=== PATIENT | male | born 1945 | race Caucasian/White ===

== ENCOUNTER 2021-04-30 06:39 | Day surgery (SDC) | payer MEDICARE, MEDICAID ==
[~2021-04-30] VITALS: Ht 175.3 cm; Wt 86.2 kg
[~2021-04-30 06:39] MED LIST: ABILIFY2 MG OR; ASPIRIN81 MG PO; ATENOLOL25 MG OR; BL ADULT ASA81 MG PO; CELEXA20 M1 OR; CEPHALEXIN500 MG PO; CIPRO500 MG PO; CRESTOR20 MG PO; HYDROCHLOROT25 MG OR; KLOR-CON M2020 MEQ PO; LASIX20 MG OR; LISINOP/HCTZ1 TAB OR; LISINOPRIL10 MG PO; LISINOPRIL20 M1 PO; LORTAB5 PO; METFORMIN HCL1000 MG PO; METFORMIN500 M1 PO; METFORMIN500 MG PO; MEVACOR40 MG OR; NAPROSYN500 MG PO; NIACIN ER500 M1 PO; PENICILLN VK500 M1 OR; PENTOPAK400 MG OR; PEXEVA40 MG OR; RANITIDINE300 M1 PO; TAMSULOSIN0.4 MG PO; XARELTO10 MG PO; [UNRECOGNIZED DRUG - REMARK]
[2021-04-30 09:43] VITALS: BP 128/73
[2021-05-01] MEDS ORDERED: PANTOPRAZOLE SO40 M1 PO (11:11)
== END 2021-04-30 10:15 | disposition home or self-care (01) ==
LOC: ORM 06:39
PROVIDERS: ATTEND Urology
PROC: 0VB03ZX Excision of Prostate, Percutaneous Approach, Diagnostic (ICD-10-PCS; principal; 2021-04-30)
PROC: BV49ZZZ Ultrasonography of Prostate and Seminal Vesicles (ICD-10-PCS; 2021-04-30)
DX: C61 Malignant neoplasm of prostate (principal); I25.10 Atherosclerotic heart disease of native coronary artery without angina pectoris; N40.1 Benign prostatic hyperplasia with lower urinary tract symptoms; N13.8 Other obstructive and reflux uropathy; I11.0 Hypertensive heart disease with heart failure; I50.9 Heart failure, unspecified; E11.42 Type 2 diabetes mellitus with diabetic polyneuropathy; E78.2 Mixed hyperlipidemia; E66.01 Morbid (severe) obesity due to excess calories; K21.9 Gastro-esophageal reflux disease without esophagitis; Z68.27 Body mass index [BMI] 27.0-27.9, adult; Z86.73 Personal history of transient ischemic attack (TIA), and cerebral infarction without residual deficits; Z79.01 Long term (current) use of anticoagulants
CPT/HCPCS: J1956

== ENCOUNTER 2021-04-30 14:24 | Observation (INO) | payer MEDICARE, MEDICAID ==
[~2021-04-30] VITALS: Ht 175.3 cm; Wt 87.0 kg
--- NOTE | 2021-04-30 14:24 | NUR ---
TO ROOM VIA EMS
[2021-04-30 14:55] LABS: HEMATOCRIT 40.2 % (39.0-50.0); HEMOGLOBIN 13.2 g/dl (14.0-18.0); IMMATURE GRANULOCYTES 0.1 % (0.0-5.0); MEAN CORPUSCULAR HGB 32.5 pG CALC (26.0-32.0); MEAN CORPUSCULAR HGB CONC 32.8 g/dL CAL (32.0-36.0); NEUT# 5.67 thou/uL (1.82-7.42); RED BLOOD COUNT 4.06 mill/uL (4.70-6.10); RED CELL DISTRI WIDTH 11.9 % (11.5-15.5)
[2021-04-30 15:07] LABS: ALKALINE PHOSPHATASE 48 u/l (38-126); ANION GAP 12 (6-22 (CALC)); BILIRUBIN, TOTAL 0.6 mg/dL (0.0-1.4); BUN 20 mg/dL (8-23); BUN/CREATININE RATIO 24 (12-20 (CALC)); CARBON DIOXIDE 25 mmol/l (22-30); CHLORIDE 103 mmol/l (95-108); CREATININE 0.9 mg/dL (0.7-1.3); GFR > 60 ML/MIN (>=60 (CALC)); GFR FOR AFR.AMER. > 60 ML/MIN (>=60 (CALC)); LIPASE 44 u/l (23-300); POTASSIUM 4.2 mmol/l (3.5-5.1); SGOT/AST 19 u/l (19-48); SODIUM 136 mmol/l (137-146); TOTAL PROTEIN 6.9 g/dL (6.3-8.2)
--- NOTE | 2021-04-30 15:30 | NUR ---
PT RESTING IN BED ON OPERATING SYSTEMS SPECIALIST, NO COMPLAINTS AT THIS TIME
[2021-04-30 15:44] LABS: URINE BILIRUBIN - DIPSTICK NEGATIVE (NEGATIVE); URINE BLOOD DIPSTICK TRACE-INTACT (NEGATIVE); URINE COLOR YELLOW; URINE GLUCOSE - DIPSTICK NEGATIVE (NEGATIVE); URINE KETONE NEGATIVE (NEGATIVE); URINE LEUK ESTERASE TRACE (NEGATIVE); URINE PH 5.5 (4.5-8.0); URINE PROTEIN - DIPSTICK NEGATIVE (NEG-TRACE); URINE UROBILINOGEN - DIPSTICK 0.2 E.U./dL (0.2)
[2021-04-30 15:45] LABS: URINE NITRITE - DIPSTICK NEGATIVE (Negative)
--- NOTE | 2021-04-30 16:57 | NUR ---
PT ALREADY HAD 324 BABY ASA ON EMS
--- NOTE | 2021-04-30 18:00 | NUR ---
PT EATING IN BED WITH NO COMPLAINTS
--- NOTE | 2021-04-30 19:03 | NUR ---
GAVE REPORT TO GLYNN HUNTER, NO COMPLAINTS WITH PT AND VSS
--- NOTE | 2021-04-30 19:14 | NUR ---
JOHNNIE RECEIVED FROM ADELINE MARIA.
[2021-04-30 19:15] VITALS: BP 148/81
--- NOTE | 2021-04-30 19:15 | NUR ---
TO FLOOR BY WC.
--- NOTE | 2021-04-30 20:27 | NUR ---
RECEIVED PATIENT TO ROOM 272 VIA WHEELCHAIR AT 1915. PATIENT AWAKE, ALERT AND ORIENTED X3. VSS. NO DISTRESS NOTED. TRANSFERED TO BED WITHOUT DIFFICULTY. ORIENTED TO ROOM AND INSTRUCTED ON USE OF CALL SOSA. BED IN LOW POSITION LOCKED. INSTRUCTED TO CALL FOR ASSISTANCE FOR RESTROOM. PATIENT APPEARS FORGETFUL, BED ALARM ACTIVATED. ADMISSION ASSESSMENT COMPLETE. CALL LIGHT WITHIN REACH.
[2021-05-01] VITALS: BP 105/64
[2021-05-01 04:00] VITALS: BP 120/69
--- NOTE | 2021-05-01 05:55 | NUR ---
ASSISTED PATIENT TO RESTROOM, TOLERATED WELL. PATIENT PASS FLATUS, NO BM. URINE PINK TINGED, STATES HE WAS INFORMED THAT IS TO BE EXPECTED AFTER HIS PROSTATE PROCEDURE YESTERDAY.
[2021-05-01 06:26] LABS: HEMATOCRIT 40.4 % (39.0-50.0); HEMOGLOBIN 13.2 g/dl (14.0-18.0); MEAN CELL VOLUME 97.8 fL CALC (80.0-100.0); MEAN CORPUSCULAR HGB CONC 32.7 g/dL CAL (32.0-36.0); RED BLOOD COUNT 4.13 mill/uL (4.70-6.10); RED CELL DISTRI WIDTH 12.1 % (11.5-15.5)
[2021-05-01 06:52] LABS: ANION GAP 10 (6-22 (CALC)); BUN 18 mg/dL (8-23); BUN/CREATININE RATIO 27 (12-20 (CALC)); CALCULATED LDLCHOLESTEROL 68 mg/dL (62-129 (CALC)); CARBON DIOXIDE 25 mmol/l (22-30); CHLORIDE 105 mmol/l (95-108); CHOLESTEROL HDL RATIO 2.5 (<4.4 (CALC)); CREATININE 0.7 mg/dL (0.7-1.3); GFR > 60 ML/MIN (>=60 (CALC)); GFR FOR AFR.AMER. > 60 ML/MIN (>=60 (CALC)); HDL CHOLESTEROL 55 mg/dL (>=40); MAGNESIUM 1.7 mg/dL (1.6-2.3); POTASSIUM 3.9 mmol/l (3.5-5.1); SODIUM 136 mmol/l (137-146); TOTAL CHOLESTEROL 137 mg/dl (0-199); TOTAL TRIGLYCERIDES 68 mg/dl (30-149); VLDL CHOLESTROL 14 mg/dl (0-38 (CALC))
--- NOTE | 2021-05-01 08:17 | NUR ---
PT AWAKE AND RESTING IN BED. PT ALERT AND ORIENTED. VS AND ASSESSMENT COMPLETE. NO SIGNS OF DISTRESS OR DISCOMFORT AT THIS TIME. RESPIRATIONS EVEN AND UNLABORED. LUNGS CLEAR. ABDOMEN SOFT AND NONTENDER. PERIPHERAL PULSES STRONG AND PALPABLE. IV INTACT, FLUSHED AND PATENT. SAFETY PRECAUTIONS IN PLACE AND CALL LIGHT WITHIN PATIENT REACH. WILL MONITOR PT CLOSELY
[2021-05-01 10:51] VITALS: BP 105/54
[2021-05-01] MEDS ORDERED: PANTOPRAZOLE SO40 M1 PO (11:11)
--- NOTE | 2021-05-01 12:00 | NUR ---
PT ALERT AND ORIENTED. PT RESTING IN BED. PT DENIES ANY PAIN OR DISTRESS AT THIS TIME. SAFETY PRECAUTIONS MAINTAINED. CALL LIGHT WITHIN PT REACH. WILL CONTINUE TO MONITOR. BED ALARM ACTIVATED
[2021-05-01 14:10] VITALS: BP 95/62
--- NOTE | 2021-05-01 16:00 | NUR ---
PT RESTING COMFORTABLY. NO NEEDS AT THIS TIME. BED ALARM ACTIVATED
--- NOTE | 2021-05-01 19:24 | NUR ---
JOHNNIE RECEIVED FROM TEAGAN HUNTER
[2021-05-01 19:35] VITALS: BP 116/57
--- NOTE | 2021-05-01 19:38 | NUR ---
RESTING QUIETLY IN BED. ALERT AND ORIENTED. VSS. NO DISTRESS NOTED. DENIES PAIN AT THIS TIME. CALL LIGHT IN REACH, INSTRUCTED TO CALL FOR ASSISTANCE.
[2021-05-02 04:00] VITALS: BP 89/53
--- NOTE | 2021-05-02 05:37 | NUR ---
RESTING QUIETLY EYES CLOSED. BED ALARM ACTIVATED. CALL LIGHT WITHIN REACH.
[2021-05-02 06:21] LABS: ANION GAP 10 (6-22 (CALC)); BUN 20 mg/dL (8-23); BUN/CREATININE RATIO 25 (12-20 (CALC)); CARBON DIOXIDE 25 mmol/l (22-30); CHLORIDE 104 mmol/l (95-108); CREATININE 0.8 mg/dL (0.7-1.3); GFR > 60 ML/MIN (>=60 (CALC)); GFR FOR AFR.AMER. > 60 ML/MIN (>=60 (CALC)); MAGNESIUM 1.7 mg/dL (1.6-2.3); POTASSIUM 4.1 mmol/l (3.5-5.1); SODIUM 135 mmol/l (137-146)
[2021-05-02 06:22] LABS: HEMATOCRIT 39.2 % (39.0-50.0); HEMOGLOBIN 12.9 g/dl (14.0-18.0); MEAN CELL VOLUME 98.2 fL CALC (80.0-100.0); MEAN CORPUSCULAR HGB 32.3 pG CALC (26.0-32.0); MEAN CORPUSCULAR HGB CONC 32.9 g/dL CAL (32.0-36.0); RED BLOOD COUNT 3.99 mill/uL (4.70-6.10); RED CELL DISTRI WIDTH 12.3 % (11.5-15.5)
[2021-05-02 07:41] VITALS: BP 109/59
--- NOTE | 2021-05-02 07:43 | NUR ---
PT OOB INTO BATHROOM. PT C/O HEMATURIA. PT FLUSHED TOILET PRIOR TO NURSES ABILITY TO ASSESS. PT C/O BURNING WITH URINATION. NO BLADDER DISTENTION NOTED AT THIS TIME. WILL BLADDER SCAN AND REASSESS AFTER BREAKFAST. VSS. PT DENIES ANY OTHER COMPLAINTS. CALL LIGHT WITHIN REACH. WILL CONTINUE TO MONITOR.
--- NOTE | 2021-05-02 09:39 | NUR ---
URINE SAMPLE SENT TO LAB AT THIS TIME.
[2021-05-02 10:14] LABS: URINE BILIRUBIN - DIPSTICK NEGATIVE (NEGATIVE); URINE BLOOD DIPSTICK LARGE (NEGATIVE); URINE GLUCOSE - DIPSTICK NEGATIVE (NEGATIVE); URINE KETONE NEGATIVE (NEGATIVE); URINE LEUK ESTERASE NEGATIVE (NEGATIVE); URINE PH 5.5 (4.5-8.0); URINE PROTEIN - DIPSTICK 100 mg/dL (NEG-TRACE); URINE UROBILINOGEN - DIPSTICK 0.2 E.U./dL (0.2)
[2021-05-02 10:15] LABS: URINE COLOR BROWN; URINE NITRITE - DIPSTICK POSITIVE (Negative)
[2021-05-02 10:16] LABS: URINE BACTERIA FEW hpf; URINE RBC TNTC RBC/hpf (0-5); URINE WBC 0-2 WBC/hpf (0-5)
--- NOTE | 2021-05-02 10:39 | NUR ---
PHYSICIAN AT BEDSIDE TO DISCUSS POC.
--- NOTE | 2021-05-02 11:44 | NUR ---
PLACE PHONE CALL TO [facility] PER PATIENTS REQUEST FOR RIDE HOME. [facility] IS OUT OF TOWN WILL CALL SOMEONE TO PICK HIM UP AFTER LUNCH.
[2021-05-02 12:03] VITALS: BP 109/66
--- NOTE | 2021-05-02 12:25 | NUR ---
IV site discontinued, cath intact. No edema , no redness, voices no discomfort.
--- NOTE | 2021-05-02 12:34 | NUR ---
Discharge instructions given. Patient verbalizes understanding of same. Discharged in stable condition via Wheelchair to Home with friend. All belongings sent with pt.
== END 2021-05-02 12:34 | disposition home health service (06) ==
LOC: ED 14:24 → ED-I 16:07 → ED 16:20 → MS2 16:21
PROVIDERS: Family Medicine; Nurse Practitioner; ADMIT Hospitalist; ATTEND Hospitalist
DX: R07.9 Chest pain, unspecified (principal); R42 Dizziness and giddiness; R31.9 Hematuria, unspecified; I10 Essential (primary) hypertension; E11.9 Type 2 diabetes mellitus without complications; N40.0 Benign prostatic hyperplasia without lower urinary tract symptoms; E78.5 Hyperlipidemia, unspecified; E66.9 Obesity, unspecified; R91.1 Solitary pulmonary nodule; Z86.73 Personal history of transient ischemic attack (TIA), and cerebral infarction without residual deficits; Z79.01 Long term (current) use of anticoagulants; Z98.890 Other specified postprocedural states; Z79.84 Long term (current) use of oral hypoglycemic drugs; Z20.822 Contact with and (suspected) exposure to COVID-19; R97.20 Elevated prostate specific antigen [PSA]; C61 Malignant neoplasm of prostate; I25.10 Atherosclerotic heart disease of native coronary artery without angina pectoris; N40.1 Benign prostatic hyperplasia with lower urinary tract symptoms; N13.8 Other obstructive and reflux uropathy; I11.0 Hypertensive heart disease with heart failure; I50.9 Heart failure, unspecified; E11.42 Type 2 diabetes mellitus with diabetic polyneuropathy; E78.2 Mixed hyperlipidemia; E66.01 Morbid (severe) obesity due to excess calories; K21.9 Gastro-esophageal reflux disease without esophagitis; Z68.27 Body mass index [BMI] 27.0-27.9, adult
CPT/HCPCS: J1650; J1956; Q9967

== ENCOUNTER 2021-06-19 14:56 | Inpatient (IN) | payer MEDICARE, MEDICAID ==
[~2021-06-19] VITALS: Ht 175.3 cm; Wt 87.0 kg
[~2021-06-19 14:56] MED LIST changes: -KLOR-CON M2020 MEQ PO; +PANTOPRAZOLE SO40 M1 PO; +POTASSIUM CHLO10 ME4 PO
--- NOTE | 2021-06-19 15:00 | NUR ---
PT TO ROOM FOR BEDSIDE TRIAGE FROM EMS
[2021-06-19 15:54] LABS: HEMATOCRIT 37.8 % (39.0-50.0); HEMOGLOBIN 12.6 g/dl (14.0-18.0); MEAN CELL VOLUME 94.5 fL CALC (80.0-100.0); MEAN CORPUSCULAR HGB 31.5 pG CALC (26.0-32.0); MEAN CORPUSCULAR HGB CONC 33.3 g/dL CAL (32.0-36.0); NEUT# 3.41 thou/uL (1.82-7.42)
[2021-06-19 15:56] LABS: URINE BILIRUBIN - DIPSTICK NEGATIVE (NEGATIVE); URINE BLOOD DIPSTICK NEGATIVE (NEGATIVE); URINE COLOR YELLOW; URINE GLUCOSE - DIPSTICK NEGATIVE (NEGATIVE); URINE KETONE NEGATIVE (NEGATIVE); URINE LEUK ESTERASE TRACE (NEGATIVE); URINE PROTEIN - DIPSTICK NEGATIVE (NEG-TRACE); URINE SPECIFIC GRAVITY 1.015; URINE UROBILINOGEN - DIPSTICK 0.2 E.U./dL (0.2)
[2021-06-19 16:07] LABS: URINE NITRITE - DIPSTICK NEGATIVE (Negative)
[2021-06-19 16:13] LABS: ALKALINE PHOSPHATASE 68 u/l (38-126); ANION GAP 13 (6-22 (CALC)); BILIRUBIN, TOTAL 0.6 mg/dL (0.0-1.4); BUN 25 mg/dL (8-23); BUN/CREATININE RATIO 26 (12-20 (CALC)); CARBON DIOXIDE 24 mmol/l (22-30); CHLORIDE 103 mmol/l (95-108); GFR > 60 ML/MIN (>=60 (CALC)); GFR FOR AFR.AMER. > 60 ML/MIN (>=60 (CALC)); LIPASE 88 u/l (23-300); POTASSIUM 4.3 mmol/l (3.5-5.1); SGOT/AST 20 u/l (19-48); SODIUM 136 mmol/l (137-146); TOTAL PROTEIN 7.4 g/dL (6.3-8.2)
[2021-06-19 16:19] LABS: ALBUMIN 4.2 g/dL (3.2-5.0)
--- NOTE | 2021-06-19 16:31 | NUR ---
DR WILLINGHAM AUTHORIZED [facility] TO BE GIVEN IM INSTEAD OF PO. CONTINUES TO C/O SUPRAPUBIC DISCOMFORT
--- NOTE | 2021-06-19 20:45 | NUR ---
UPON ENTERING ROOM, NG TUBE FOUND ON FLOOR. NEW NG TUBE PLACED IN THE LEFT NARES.
--- NOTE | 2021-06-19 21:03 | NUR ---
RN REPORT CALLED TO AJ
[2021-06-19 21:30] VITALS: BP 179/102
--- NOTE | 2021-06-19 22:00 | NUR ---
PATIENT ADMITTED FROM ER VIA WHEELCHAIR WITH ER STAFF IN ATTENDANCE. PATIENT TRANSFERRED TO BED. PATIENT IS PALE. AWAKE ALERT AND ORIENTEDX3. PATIENT WITH NG TUBE IN PLACE TO LEFT NARE. PLACEMENT CHECKED USEING STETHASCOPE AND SYRINGE. NG TUBE TO LIWS DRAING PALE YELLOW SECREATIONS. ABD IS FIRM-HYPOACTIVE BS. LAST BM WAS TODAY PER PATIENT. 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 LIVES WITH HIS GIRLFRIEND. CAME TO ER BY EMS AFTER CALLING THEM FOR SEVERE ABD PAIN. NPO AT THIS TIME. IV SITE TO RIGHT FOREARM-IVF NS HUNG AND INFUSING AT 100CC/HR. SITE IS HEALTHY WITH GOOD BLOOD RETURN. PATIENT STATES THAT HE DOES HAVE SOME BURNING UPON URINATION. HX OF CVA WITH LEFT SIDED WEAKNESS. STATES THAT HE USUALLY WALKS WITH EITHER CANE OR WALKER. PATIENT ORIENTED TO ROOM AND SURROUNDINGS. SAFETY PRECAUTIONS REINFORCED. CALL LIGHT IN REACH. WILL CONT TO MONITOR.
--- NOTE | 2021-06-19 23:15 | NUR ---
PATIENT RESTING IN BED-C/O SEVERE ABD/PELVIC PAIN-MEDICATED WITH ZOFRAN 4MG IVP FOR NAUSEA AND WITH MORPHINE 2MG IVP FOR 10/10 PAIN SCALE. IVF PATENT AND INFUSING ORDERED AT 100CC/HR. SITE REMAINS HEALTHY. NG TUBE TO LIWS DRAINING YELLOW SCREATIONS. CALL LIGHT IN REACH. WILL CONT TO MONITOR.
[2021-06-20] VITALS (12 sets, daily range): BP systolic 91–162; BP diastolic 52–89
--- NOTE | 2021-06-20 01:47 | NUR ---
PATIENT RESTING IN BED AT THIS TIME. NG TUBE PATENT AND DRAINING YELLOW SECREATIONS. IVF PATENT AND INFUSING VIA RIGHT ARM SITE. CONT TO C/O ABD/PELVIC PAIN 10/10 ON PAIN SCALE. MEDICATED WITH MORPHINE 2MG IVP ORDERED FOR PAIN. CALL LIGHT IN REACH. WILL CONT TO MONITOR.
--- NOTE | 2021-06-20 05:04 | NUR ---
PATIENT RESTING IN BED AT THIS TIME-AWAKE CONT TO C/O ABD/PELVIC PAIN. MEDICATED WITH ZOFRAN 4MG IVP FOR NAUSEA NAD WITH MORPHINE 2MG IVP FOR PAIN-9/10 ON PAIN SCALE. IVF NS PATENT AND INFUSING VIA RIGHT AC AT 125CC/HR. SITE REMAINS HEALTHY WITH GOOD BLOOD RETURN. VOIDED 600CC OF DAVID URINE IN URINAL. NG TUBE TO LEFT NARE IN PLACE TO LIWS CONT TO DRAIN YELLOW SECREATIONS. CALL LIGHT IN REACH. WILL CONT TO MONITOR.
--- NOTE | 2021-06-20 05:07 | NUR ---
PATIENT AWAKE RESTING IN BED. RIGHT FOOT REMAINS VERY RED WITH SOME CRUSTY DRY DRAINAGE AROUND THE TOES. FAINT PULSE. WARM TO TOUCH. CONT TO ENCOURAGE PATIENT TO KEEP RIGHT FOOT ELEVATED ON PILLOWS. PATIENT CHECK HIS OWN KRISTI GLUCOSE MONITORING DEVICE READING 45. PATIENT IS ASYMPTOMATIC AT THIS TIME. SKIN IS WARM AND DRY. COLOR IS WNL. CHECK WITH HOSPITAL DEVICE AND IT IS 77. PATIENT PROVIDED WITH SNACK. IVF NS PATENT AND INFUSING VIA LAC SITE AT 75CC/HR. SAFETY PRECAUTIONS REINFORCED. CALL LIGHT IN REACH. WILL CONT TO MONITOR.
[2021-06-20 05:19] LABS: HEMATOCRIT 38.1 % (39.0-50.0); HEMOGLOBIN 13.3 g/dl (14.0-18.0); MEAN CELL VOLUME 91.6 fL CALC (80.0-100.0); MEAN CORPUSCULAR HGB CONC 34.9 g/dL CAL (32.0-36.0); RED BLOOD COUNT 4.16 mill/uL (4.70-6.10); RED CELL DISTRI WIDTH 11.9 % (11.5-15.5)
[2021-06-20 05:29] LABS: ALBUMIN 3.9 g/dL (3.2-5.0); ALKALINE PHOSPHATASE 63 u/l (38-126); ANION GAP 16 (6-22 (CALC)); BUN 22 mg/dL (8-23); BUN/CREATININE RATIO 31 (12-20 (CALC)); CARBON DIOXIDE 20 mmol/l (22-30); CHLORIDE 103 mmol/l (95-108); CREATININE 0.7 mg/dL (0.7-1.3); GFR > 60 ML/MIN (>=60 (CALC)); GFR FOR AFR.AMER. > 60 ML/MIN (>=60 (CALC)); POTASSIUM 4.2 mmol/l (3.5-5.1); SGOT/AST 21 u/l (19-48); SODIUM 135 mmol/l (137-146)
[2021-06-20] MEDS ORDERED: OMEPRAZOLE DR40 MG PO (07:10)
--- NOTE | 2021-06-20 07:10 | NUR ---
PATIENT LAYING IN BED AT THIS TIME. PATIENT ALERT AND ORIENTED X 3 NG TUBE PATENT AND DRAINING YELLOW DRAINAGE AT THIS TIME AT INTERMITTEN /MED SUCTION AT THIS TIME. SIDERAILS ARE UP CALL LIGHT IS WITHIN REACH. PATIENT BOWEL SOUNDS ARE HYPOACTIVEN IN ALL FOUR QUADRANDTS AND PATIENT C/O PAIN IN LOWER ABDOMIAL AREA AT THIS TIME. PATIENT VOIDING DAVID COLOR URINE AT THIS TIME. PAITENT WILL CONTINUE TO BE MONITORED.
--- NOTE | 2021-06-20 12:00 | NUR ---
PATIENT LAYING IN BED AT THIS TIME. PATINET C/O PAIN THROUGH OUT ABDOMINAL WALL AT THIS TIME TO TOUCH ONLY. PATIENT NG SHOWING NO OUTPUT AT THIS TIME ATTEMPT MADE TO HEAR FOR PLACEMENT AND ENERGY CONTROL OFFICER MILLY CALLED AND STAT X-RAY ORDERS OBTAINED FOR PLACEMENT. PATINET LACTIC ACID LAB VALUE WAS CALL AND NOTED TO BE 2.6. DR. HUTSON HERE ON FLOOR AND INFORMED AND ORDERS GIVEN TO BOLUS PATIENT AT THIS TIME. NEW IV SITE OBTAINED #20 ON LEFT WRIST AT THIS TIME AND BOLUS OF .9/NS GOING IN AT 150ML/HR. NURSING ENERGY CONTROL OFFICER ON FLOOR AT THIS TIME DR. NELSON SPEAKING TO NURSING ENERGY CONTROL OFFICER AND ORDERS GIVEN TO PREP PATIENT TO GO TO SURGERY. NURSING ENERGY CONTROL OFFICER MILLY STATED TEAM HAS BEEN CALLED IN VS. AT THIS TIME ARE TEMP. 98.9 PULSE 107 RESP 20 BP IS 139/87. SPO2 IS %. PATIENT MADE AWARE THAT DR. NELSON IS ON HIS WAY IN TO TAKE PATIENT TO SURGERY AND WILL SPEAK TO HIM PRIOR TO GOING INTO SURGERY. PATIENTS NEXT OF KIN NOTIFIED AND GLASS ETCHER HELPER NOTIFIED AT THIS TIME. TELE MONITOR IN PLACE SIDERAILS ARE UP CALL LIGHT WITHIN REACH.
--- NOTE | 2021-06-20 13:06 | NUR ---
DR. NELSON IN TO SEE PATIENT AT THIS TIME.
--- NOTE | 2021-06-20 13:25 | NUR ---
SURGERY TEAM UP TO TAKE PATIENT TO SURGERY AT THIS TIME. ED CALLED REGARDING PATIENT COMING OFF TELE.
--- NOTE | 2021-06-20 14:23 | NUR ---
PATIENT REMAINS IN OR AT THIS TIME.
--- NOTE | 2021-06-20 14:25 | NUR ---
LAB CALLED TO STATE THAT LACTIC ACID LAB VALUE HAS INCREASED TO 3.7 DR. NELSON LEFT MESSAGE AND CONTACTED OR WHERE PATIENT IS CURRENTLY UNDERGOING SURGERY AT THIS TIME. OR NURSE COLETTE GIVEN RESULT.
--- NOTE | 2021-06-20 15:32 | NUR ---
PATIENT REMAINS IN SURGERY AT THIS TIME.
--- NOTE | 2021-06-20 16:28 | NUR ---
PACU CALLED AND STATED THAT PATIENT IS TO BE TRANSFERED TO ICU AT THIS TIME TO BED #5 SANAM RN IN PACU STATED THAT SHE WILL WRITE THE ORDER AND FAX TO ER REGISTRATON PER DR. ANDERSON. PATIENT'S BELONGINGS SENT TO ICU AT THIS TIME.
--- NOTE | 2021-06-20 17:33 | NUR ---
PATIENT CAME UP TO THE FLOOR AT 1708. PATIENT IS ALERT, SLEEPY. VITALS ARE BEING DONE PER PROTOCOL. DENIES PAIN AT THIS TIME, NURSE FROM ER STATED SHE GAVE HIM PAIN MEDICATION PRIOR TO COMING UP TO THE FLOOR. 3MM PERRLA BILATERAL EYES. SKIN COLOR LOOKS GOOD, VITAL SIGNS ARE STABLE. CLEAR LUNG SOUNDS TRHOUGHOUT. LEFT LOWER BOWEL HYPOACTIVE, OTHER QUADS ARE ABSENT. NG TUBE IN RIGHT NARE ON LCS. SCDS ARE IN PLACE. STRONG EQUAL HAND MGMT ANALYST, NO ARM DRIFTS NOTED AT THIS TIME. TRACED EDEMA ON BLE. PALPABLE PULSES. GALAN DRAINING CLEAR YELLOW URINE. WARM DRY SKIN. ABDOMEN DRESSING CLEAN, DRY AND INTACT. SAFETY MEASURES IN PLACE. CALL LIGHT IN REACH. WILL CONTINUE TO MONITOR PER HOSPITAL'S POLICY.
--- NOTE | 2021-06-20 19:15 | NUR ---
awakens easily. denies acute abd pain. no bowel sounds. abd dsg cdi. ng cont to lis draining dark brown. o2 cont per nc. knapsack sprayer shows sinus rhythm hr 92. #20 rac ns infusing @ [id number]. site is positional. iv connected to rt subcl tlc. polo cath in place. urine lt kori. bilat scds & fall precautions cont. tcbd. jamarcus well.
--- NOTE | 2021-06-20 22:00 | NUR ---
eyes closed. no distress. network applications specialist shows sinus rhythm hr 98.
[2021-06-21] VITALS (21 sets, daily range): BP systolic 87–111; BP diastolic 44–65
--- NOTE | 2021-06-21 00:01 | NUR ---
resting quietly. no apparent distress. ivf infusing well.
--- NOTE | 2021-06-21 02:00 | NUR ---
resting quietly. resps even & unlabored. no apparent distress.
--- NOTE | 2021-06-21 04:50 | NUR ---
blood drawn & sent to lab. medicated for pain as ordered.
[2021-06-21 05:14] LABS: MEAN CELL VOLUME 93.3 fL CALC (80.0-100.0); MEAN CORPUSCULAR HGB 32.2 pG CALC (26.0-32.0); MEAN CORPUSCULAR HGB CONC 34.5 g/dL CAL (32.0-36.0); RED BLOOD COUNT 3.26 mill/uL (4.70-6.10); RED CELL DISTRI WIDTH 12.4 % (11.5-15.5)
[2021-06-21 05:20] LABS: HEMATOCRIT 30.4 % (39.0-50.0); HEMOGLOBIN 10.5 g/dl (14.0-18.0)
[2021-06-21 05:29] LABS: ALKALINE PHOSPHATASE 36 u/l (38-126); ANION GAP 9 (6-22 (CALC)); BILIRUBIN, TOTAL 1.1 mg/dL (0.0-1.4); BUN 22 mg/dL (8-23); BUN/CREATININE RATIO 26 (12-20 (CALC)); CARBON DIOXIDE 24 mmol/l (22-30); CHLORIDE 107 mmol/l (95-108); CREATININE 0.9 mg/dL (0.7-1.3); GFR > 60 ML/MIN (>=60 (CALC)); GFR FOR AFR.AMER. > 60 ML/MIN (>=60 (CALC)); POTASSIUM 3.8 mmol/l (3.5-5.1); SGOT/AST 22 u/l (19-48); SODIUM 135 mmol/l (137-146)
[2021-06-21 05:30] LABS: ALBUMIN 2.4 g/dL (3.2-5.0); MAGNESIUM 1.1 mg/dL (1.6-2.3); TOTAL PROTEIN 4.9 g/dL (6.3-8.2)
--- NOTE | 2021-06-21 07:27 | NUR ---
C/O ABD PAIN 5/10. PRN DILAUDID GIVEN.
--- NOTE | 2021-06-21 09:52 | NUR ---
DR. LIN IN TO SEE PT.
--- NOTE | 2021-06-21 10:30 | NUR ---
RECIEVED ORDERS FORM DR NELSON FOR TPN.
--- NOTE | 2021-06-21 12:32 | NUR ---
IV ABT INFUSING AT THIS TIME NO S/S OF ADVERSE REACTIONS NOTED.
--- NOTE | 2021-06-21 14:14 | NUR ---
DR NELSON IN TO SEE PT. NEW ORDERS RECIEVED.
--- NOTE | 2021-06-21 14:49 | NUR ---
PHYSICAL THERAPY IN WORKING WITH PT.
--- NOTE | 2021-06-21 18:50 | NUR ---
SBAR RECEIVED FROM ELSA GREGORIO. PATIENT RESTING COMFORTABLY IN BED.
--- NOTE | 2021-06-21 20:45 | NUR ---
ASSESSMENT COMPLETE. PATIENT AWAKE, ALERT AND ORIENTED X3. VSS. NO DISTRESS NOTED. NGT LOW INTERMITTENT SUCTION, CLEAR DRAINAGE. BOWEL SOUNDS HYPOACTIVE. MID ABDOMINAL DRESSING IN PLACE; CLEAN, DRY AND INTACT. C/O PAIN 7 ON SCALE 0-10. DILAUDID 0.5MG ADMINISTERED, BP 104/51. PM MEDS GIVEN. NO CONCERNS EXPRESSED. PATIENT STABLE. CALL LIGHT WITHIN REACH.
[2021-06-22] VITALS (19 sets, daily range): BP systolic 92–137; BP diastolic 52–70
--- NOTE | 2021-06-22 00:17 | NUR ---
PATIENT RESTING QUIETLY, EYES CLOSED. LIPIDS INFUSION COMPLETE, TUBING DISCONNECTED. CIPRO IV ADMINISTERED. NO DISTRESS NOTED. PATIENT STABLE, CALL LIGHT WITHIN REACH.
--- NOTE | 2021-06-22 02:00 | NUR ---
TPN COMPLETE, CLINIMIX UP AND RUNNING. PATIENT WITH WET NO PRODUCTIVE COUGH. LUNGS CLEAR TO AUSCULTATION. NO DISTRESS NOTED, SATURATION 100% ON 3L/NC. PATIENT VERBALIZES PAIN IS TOLERABLE 3 ON SCALE 0-10. NO CONCERNS EXPRESSED. CALL LIGHT WITHIN REACH.
--- NOTE | 2021-06-22 04:50 | NUR ---
PATIENT RESTING QUIETLY EYES CLOSED. NO DISTRESS NOTED. CALL LIGHT WITHIN REACH.
[2021-06-22 05:17] LABS: HEMATOCRIT 25.2 % (39.0-50.0); MEAN CELL VOLUME 96.6 fL CALC (80.0-100.0); MEAN CORPUSCULAR HGB 31.8 pG CALC (26.0-32.0); MEAN CORPUSCULAR HGB CONC 32.9 g/dL CAL (32.0-36.0); RED BLOOD COUNT 2.61 mill/uL (4.70-6.10); RED CELL DISTRI WIDTH 12.4 % (11.5-15.5)
[2021-06-22 05:21] LABS: BUN 24 mg/dL (8-23); BUN/CREATININE RATIO 31 (12-20 (CALC)); CHLORIDE 105 mmol/l (95-108); CREATININE 0.8 mg/dL (0.7-1.3); GFR > 60 ML/MIN (>=60 (CALC)); GFR FOR AFR.AMER. > 60 ML/MIN (>=60 (CALC)); POTASSIUM 3.5 mmol/l (3.5-5.1); SODIUM 135 mmol/l (137-146)
[2021-06-22 05:22] LABS: HEMOGLOBIN 8.3 g/dl (14.0-18.0)
[2021-06-22 05:29] LABS: ANION GAP 5 (6-22 (CALC)); CARBON DIOXIDE 29 mmol/l (22-30); MAGNESIUM 1.9 mg/dL (1.6-2.3)
--- NOTE | 2021-06-22 07:02 | NUR ---
PATIENT ASSISTED FROM BED TO CHAIR, TOLERATED WELL. NO DISTRESS NOTED. C/O 10 ON SCALE 0-10, PATIENT MEDICATED WITH DILAUDID 1MG. INSTRUCTED ON USE OF INCENTIVE SPIROMETRY. NO CONCERNS EXPRESSED. CALL LIGHT WITHIN REACH.
--- NOTE | 2021-06-22 08:14 | NUR ---
SITTING UP IN RECLINER. MILD C/O PAIN VOICED /. ENCOURAGED TO USE INCENTIVE SPIROMETER.
--- NOTE | 2021-06-22 09:31 | NUR ---
DR LIN IN TO SEE PT.
--- NOTE | 2021-06-22 10:12 | NUR ---
C/O PAIN PRN DILAUDID GIVEN.
--- NOTE | 2021-06-22 11:05 | NUR ---
PHYSICAL THERAPY IN WORKING WITH PT AT THIS TIME.
--- NOTE | 2021-06-22 11:36 | NUR ---
PLACED BACK TO BED BY PHYSICAL THERAPY.
--- NOTE | 2021-06-22 12:34 | NUR ---
DR NELSON IN TO SEE PT.
[2021-06-22 12:50] LABS: HEMATOCRIT 25.4 % (39.0-50.0); HEMOGLOBIN 8.3 g/dl (14.0-18.0)
--- NOTE | 2021-06-22 13:31 | NUR ---
S: Patient reported feeling better on this date than during initial evaluation. O: Patient performed: In chair with feet elevated 2 x 10 each SLR with AAROM 2 x 10 each hip abduction with AAROM 2 x 10 each hip and knee flexion with AAROM Chair to Bed with Max A x 2 Patient required frequent verbal and tactile cues to perform transfer. Sit to supine Mod A x 2 Bed mobility Mod A x 1 A: Patient reported having 6/10 pain at the most today which was during transfer. Patient required AAROM due to pain with independent muscle activation at which point reported no pain. Patient was sluggish and repeatedly appeared to dose off throughout session at which point verbal and tactile cues were required to arouse him. Patient also required verbal and tactile cues for initiation of movement during transfer to bed. Patient will need to continue with interventions as he continues to recover and function while monitoring pain and post surgical precautions. P: Patient will need to continue with interventions focused on bed mobility, transfers, strengthening, gait training, ROM, and balance training to improve functional level with ADLs and increased independence. Patient's Am Pac score on this date was 8 which would be a discharge recommendation for an extended care facility. I agree with this recommendation at this point due to the patient's limited ability to perform ADLs and ability to continuously stay alert.
--- NOTE | 2021-06-22 16:47 | NUR ---
PRN DILAUDID GIVEN C/O PAIN 03/23.
--- NOTE | 2021-06-22 17:44 | NUR ---
ACCUCHECK 129.
--- NOTE | 2021-06-22 18:40 | NUR ---
SBAR RECEIVED FROM ELSA GREGORIO. PATIENT RESTING COMFORTABLY IN BED. CALL LIGHT WITHIN REACH.
--- NOTE | 2021-06-22 20:20 | NUR ---
ASSESSMENT COMPLETE. PATIENT ALERT AND ORIENTED X3. VSS. NO DISTRESS NOTED. NGT LOW INTERMITTENT SUCTION TO RIGHT NARE; PATENT, DARK BROWN DRAINAGE NOTED. MID-ABDOMINAL DRESSING; CLEAN, DRY AND INTACT. GALAN TO GRAVITY, PATENT. PATIENT DENIES PAIN AT THIS TIME CALL LIGHT WITHIN REACH.
--- NOTE | 2021-06-22 22:48 | NUR ---
ANAMAR CALLED FROM OSCAR COLE RN.
[2021-06-23] VITALS (15 sets, daily range): BP systolic 105–131; BP diastolic 52–67
--- NOTE | 2021-06-23 00:09 | NUR ---
PATIENT RESTING QUIETLY EYES CLOSED. CIPRO IV GIVEN PER ORDERS.
--- NOTE | 2021-06-23 04:32 | NUR ---
RESTING QUIETLY IN BED, EASILY AWAKENED. A.M ANTIBIOTICS GIVEN. PATIENT DENIES PAIN AT THIS TIME. 200ML CLEAR DAVID URINE EMPTIED FROM GALAN. CALL LIGHT WITHIN REACH, INSTRUCTED TO CALL FOR ASSISTANCE.
[2021-06-23 05:24] LABS: HEMATOCRIT 23.9 % (39.0-50.0); HEMOGLOBIN 7.8 g/dl (14.0-18.0); MEAN CELL VOLUME 97.2 fL CALC (80.0-100.0); MEAN CORPUSCULAR HGB 31.7 pG CALC (26.0-32.0); MEAN CORPUSCULAR HGB CONC 32.6 g/dL CAL (32.0-36.0); RED BLOOD COUNT 2.46 mill/uL (4.70-6.10); RED CELL DISTRI WIDTH 12.2 % (11.5-15.5)
--- NOTE | 2021-06-23 05:34 | NUR ---
PATIENT REPOSITIONED FOR COMFORT. PATIENT USED INCENTIVE SPIROMETER AT THIS TIME, TOLERATED WELL.
[2021-06-23 05:44] LABS: ANION GAP 4 (6-22 (CALC)); BUN 20 mg/dL (8-23); BUN/CREATININE RATIO 30 (12-20 (CALC)); CARBON DIOXIDE 30 mmol/l (22-30); CHLORIDE 104 mmol/l (95-108); CREATININE 0.7 mg/dL (0.7-1.3); GFR > 60 ML/MIN (>=60 (CALC)); GFR FOR AFR.AMER. > 60 ML/MIN (>=60 (CALC)); MAGNESIUM 1.6 mg/dL (1.6-2.3); POTASSIUM 3.2 mmol/l (3.5-5.1); SODIUM 135 mmol/l (137-146)
--- NOTE | 2021-06-23 07:15 | NUR ---
2 PERSON ASSIST TO RECLINER. NO C/O PAINVOICED. BELCHING NOTED DURING TRANSFER.
--- NOTE | 2021-06-23 08:50 | NUR ---
DR NELSON IN TO SEE PT. AWAITING NEW ORDERS.
--- NOTE | 2021-06-23 09:16 | NUR ---
NS @ 42ML/HR OFF. NG TUBE CLAMPED.
--- NOTE | 2021-06-23 10:03 | NUR ---
DR LIN IN TO SEE PT.
--- NOTE | 2021-06-23 10:28 | NUR ---
PHYSICAL THERAPY IN TO SEE PT.
--- NOTE | 2021-06-23 12:03 | NUR ---
SITTING UP IN RECLINER. COMFORTABLE NO C/O PAIN VOICED.
--- NOTE | 2021-06-23 14:06 | NUR ---
FREQUENT MONITORING. NO C/O PAIN VOICED. NO S/S OF DISTRESS NOTED.
--- NOTE | 2021-06-23 15:28 | NUR ---
S: Patient reported feeling much better on this date and he was much more alert than previous days. O: Patient performed: 1 x 10 each seated hip flexion 1 x 10 each seated knee extension 1 x 10 each seated hip adduction 1 x 10 each seated ankle plantarflexion 1 x 10 each seated ankle dorsiflexion A: Patient was able to do all seated exercises with minimal pain and full AROM. Patient still needs to follow surgical precautions as to not reopen surgical site. Patient will continue to progress as tolerated with precautions. P: Patient will need to continue interventions focused on strengthening, transfers, endurance, gait training, bed mobility, and balance training to increase function with ADLs. Patient's Am Pac score on this date was 9 which is a discharge recommendation for an extended care facility. I agree with this recommendation as the patient is still very limited with ADLs due to surgical procedure.
--- NOTE | 2021-06-23 18:24 | NUR ---
ASSISTED BACK TO BED. NO C/O PAIN VOICED.
--- NOTE | 2021-06-23 18:50 | NUR ---
ANAMAR RECEIVED FROM ELSA GREGORIO.
--- NOTE | 2021-06-23 20:15 | NUR ---
ASSESSMENT COMPLETE. VSS. NO DISTRESS NOTED. NGT CLAMPED, ABDOMIN SOFT, TENDER TO TOUCH. BOWEL SOUNDS ABSENT, NO BM OR FLATUS; PATIENT HAS BEEN BELCHING. NO C/O PAIN AT THIS TIME. PATIENT STABLE. CALL LIGHT WITHIN REACH.
[2021-06-24] VITALS (13 sets, daily range): BP systolic 96–115; BP diastolic 57–70
--- NOTE | 2021-06-24 00:05 | NUR ---
PATIENT RESTING QUIETLY EYES CLOSED. BED IN LOW POSITION LOCKED. CALL LIGHT WITHIN REACH.
--- NOTE | 2021-06-24 04:30 | NUR ---
PATIENT RESTING, EYES CLOSED. NO DISTRESS NOTED. BED IN LOW POSITION, LOCKED. CALL LIGHT WITHIN REACH.
[2021-06-24 05:30] LABS: HEMATOCRIT 25.4 % (39.0-50.0); HEMOGLOBIN 8.4 g/dl (14.0-18.0); MEAN CELL VOLUME 96.9 fL CALC (80.0-100.0); MEAN CORPUSCULAR HGB 32.1 pG CALC (26.0-32.0); MEAN CORPUSCULAR HGB CONC 33.1 g/dL CAL (32.0-36.0); RED BLOOD COUNT 2.62 mill/uL (4.70-6.10); RED CELL DISTRI WIDTH 12.3 % (11.5-15.5)
[2021-06-24 05:46] LABS: ANION GAP 5 (6-22 (CALC)); BUN 20 mg/dL (8-23); BUN/CREATININE RATIO 29 (12-20 (CALC)); CARBON DIOXIDE 34 mmol/l (22-30); CHLORIDE 103 mmol/l (95-108); CREATININE 0.7 mg/dL (0.7-1.3); GFR > 60 ML/MIN (>=60 (CALC)); GFR FOR AFR.AMER. > 60 ML/MIN (>=60 (CALC)); MAGNESIUM 1.5 mg/dL (1.6-2.3); POTASSIUM 3.5 mmol/l (3.5-5.1); SODIUM 138 mmol/l (137-146)
--- NOTE | 2021-06-24 06:55 | NUR ---
PATIENT RESTING COMFORTABLY IN BED EYES CLOTHES. VITALS WNL NO COMPLAINTS AT THIS TIME CALL LIGHT WITHIN REACH
--- NOTE | 2021-06-24 07:46 | NUR ---
PATIENT AWAKE AND ORIENTED X3. REPORTS PASSING GAS THIS AM. BOWEL SOUNDS ARE PRESENT. NG TUBE IN PLACE, CLAMPED. NO REPORTS OF N/V. REPORTS OF GREAT URINE OUTPUT DURING NIGHT. GALAN IN PLACE, DRANING PALE YELLOW URINE. NO REPORTS OF PAIN. ABD DRESSING IN PLACE, NO SIGNS OF DRAINAGE ECT. NO COMPLAINTS SHALONDA. BG WAS 144. CALL LIGHT WITHIN REACH
--- NOTE | 2021-06-24 09:43 | NUR ---
RN SPOKE WITH DR NELSON. PER VERBAL ORDER, DC NG AND ADVANCE DIET TO SIPS OF WATER. RN CHANGED PATIENTS DRESSING NO SIGNS OF INFECTION, REDNESS OR DRAINAGE. INCISION IS CLOSED WITH ILSA. NO EDEMA AND BLEEDING NOTED. DR NELSON GIVES OKAY TO DOWNGRADE PATIENT TO [facility].
--- NOTE | 2021-06-24 11:30 | NUR ---
PATIENT BATHED AND UP TO CHAIR. TOLERATED WALKING WELL. NO COMPLAINTS VITALS WNL. CALL LIGHT WITHIN REACH
--- NOTE | 2021-06-24 13:00 | NUR ---
PATIENT RESTING COMFORTABLY VITALS WNL.NO PAIN REPORTED
--- NOTE | 2021-06-24 17:00 | NUR ---
S: Patient reported feeling better on this date. O: Patient performed:in chair with legs up 1 x 15 each SLR 1 x 15 each hip abduction 1 x 15 each hip and knee flexion Sit to stand Max A x 1 A: Patient reported no pain during seated exercises. Patient was very slow and controlled with BLE movement to not reopen surgical wound. Patient was only able to stand for approximately 10 seconds before having to sit down due to fatigue. Patient is progressing daily but will need to do what is tolerated in order to decrease risk for reopening surgical site. P: Patient will need to continue with interventions focused on strengthening, transfers, gait training, balance training, and endurance in order to improve function with ADLs and independence. Patient's Am Pac score on this date is 9 which is a discharge recommendation for an extended care facility. I agree with this recommendation at this time as the patient is very limited to due surgical precautions.
--- NOTE | 2021-06-24 19:50 | NUR ---
PT IS VERY AGITATED, GENERAL MACHINE OPERATOR AT BEDSIDE 08/14 AT THIS TIME FOR SAFETY. DR. MENARD IS AT BEDSIDE INSTRUCTED GENERAL MACHINE OPERATOR ON HOW TO RELATE AND ASSIST THE PT THROUGHOUT THE NIGHT. THE PT IS CONTINUALLY ATTEMPTED TO GET OUT OF THE BED, IT IS AGREED THAT HE IS TOO WEAK AND CONFUSED TO STAND FOR URINAL USE. HE IS A VERY LARGE MAN. WE WERE ASSISTING THE PT TO REPOSITION HE STARTED VOMITING. PT WAS TURNED QUICKLY AND WAS UNABLE TO CLEAR HIS OWN AIRWAY. DR. MENARD SUCTIONED THE PT. OXYGEN WAS THEN ASSESSED TO BE 95% PT APPEARS STABLE, BUT CONFUSED AND VERY AGITATED. HE WAS MEDICATED W/ZOFRAN AT THIS TIME PER REQUEST OF DR. MENARD.
--- NOTE | 2021-06-24 20:13 | NUR ---
PT MEDICATED ORDERS PROVIDE AND ASSISTED TO RESTROOM AND BACK TO BED. HE IS A LITTLE UNSTEADY GAIT, BUT ONLY REQUIRES 1X ASSIST. 200CC OF URINE EMPTIED AT THIS TIME. PT LOCX3.
--- NOTE | 2021-06-24 20:15 | NUR ---
PT CLEANED OF INCONTIENT STOOL AND VOMIT AND REPOSITIONED IN THE BED. PT IS EXTREMELY AGITATED AND ATTEMPTING TO GET OUT OF THE BED. PT IS UNABLE TO ARTICULATE HIS NEEDS AT THIS TIME AND MOANS AND GRUNTS. WE ATTEMPTED URINAL USE AGAIN AT THIS TIME, BUT PT IS TOO AGITATED AND CONFUSED TO USE.
--- NOTE | 2021-06-24 21:02 | NUR ---
PT SETTING BED ALARM OFF, AUTO BODY TECHNICIAN IS STILL 1/1 AT BEDSIDE ATTEMPTING TO KEEP THE PT IN THE BED. HE IS EXTREMELY RESTLESS AND AGITATED THROWING HIS LEGS AND ARMS OUT OF THE BED.
--- NOTE | 2021-06-24 22:45 | NUR ---
PT ASSISTED TO SIDE OF THE BED TO USE URINAL AND BACK TO THE BED.
[2021-06-25] VITALS (7 sets, daily range): BP systolic 96–107; BP diastolic 59–78
--- NOTE | 2021-06-25 02:16 | NUR ---
TPN REPLENISHED WITH NEW TUBING AND FILTER FOR FURTHER ADMINISTRATION. PT AWOKE AND REPORTED BEING OKAY AND DENIES ANY PAIN OR DISCOMFORT AT THIS TIME. BED ALARM IS IN PLACE AND CALL LIGHT AT SIDE. 200CC OF CLEAR YELLOW URINE EMPTIED FROM URINAL AT THIS TIME.
[2021-06-25 05:50] LABS: HEMATOCRIT 26.7 % (39.0-50.0); HEMOGLOBIN 8.9 g/dl (14.0-18.0); MEAN CELL VOLUME 96.4 fL CALC (80.0-100.0); MEAN CORPUSCULAR HGB 32.1 pG CALC (26.0-32.0); MEAN CORPUSCULAR HGB CONC 33.3 g/dL CAL (32.0-36.0); RED BLOOD COUNT 2.77 mill/uL (4.70-6.10); RED CELL DISTRI WIDTH 12.3 % (11.5-15.5)
[2021-06-25 06:06] LABS: ANION GAP 7 (6-22 (CALC)); BUN 22 mg/dL (8-23); BUN/CREATININE RATIO 35 (12-20 (CALC)); CARBON DIOXIDE 31 mmol/l (22-30); CHLORIDE 103 mmol/l (95-108); CREATININE 0.6 mg/dL (0.7-1.3); GFR > 60 ML/MIN (>=60 (CALC)); GFR FOR AFR.AMER. > 60 ML/MIN (>=60 (CALC)); MAGNESIUM 1.5 mg/dL (1.6-2.3); POTASSIUM 3.8 mmol/l (3.5-5.1); SODIUM 137 mmol/l (137-146)
--- NOTE | 2021-06-25 08:00 | NUR ---
BEDSIDE REPORT RECEIVED. ASSESSMENT PERFORMED. PT STATED TO BE FEELING WELL. PT STATED HE HAS SOME TENDERNESS TO INCISION SITE. DENIES PAIN MEDICAITON. SN SPOKE WITH DR NELSON, HE ORDERED CLEAR LIQUID DIET AND PLANS TO ADVANCE TOLERATED. PT HAS TPN RUNNING, BS 193 AT 0630. NO COMPLAITNS, WILL CONTINUE TO MONITOR.
--- NOTE | 2021-06-25 13:35 | NUR ---
Patient is here for Retacrit injection Current Retacrit dose of 10,000 units SC q2w on 06/25/21 , Previous Retacrit dose of 20,000 units SC Q2W on 05/14/21 Current Hgb on 06/25/21: 10.9 g/dL Previous Hgb on 05/28/21 : 11.3 g/dL Previous Iron study on 05/05/21 Iron = 35 mcg/dL TIBC = 230 mcg/dL % Saturation = 15% Transferrin = 166 mcg/dL Ferritin = 104 ng/dL Next Iron study on 08/04/21 Next Hgb due on 07/09/21 Pt will come back for next dose of Retacrit 10,000 units SC Q2W BP:136/74 mmHg Exaplained Hgb results and dose decrease to pt and his . All questions answered.
--- NOTE | 2021-06-25 15:32 | NUR ---
S: Patient reported feeling much better on this date. O: Patient performed: 2 x 15 each seated hip flexion 2 x 15 each seated knee extension 2 x 15 each ankle dorsiflexion Bed mobility Min A x 1 Supine to sit Min A x 1 Sit to stand Mod A x 1 Standing 1 x 1 minute, 1 x 4 minutes The second bout of standing was performed while cleaning the patient after having a minor unintentional bowel moevment. Patient did not have any pain during activity only some tightness in abdomen. A: Patient is progressing with tolerance of activity without pain. Patient is improving mobility while still being cautious not to overly exert and reopen surgical area. Patient will continue to progress with interventions as tolerated to increase function without increasing risk of reopening surgical site. P: Patient will need to continue with interventions focused on strengthening, endurance, bed mobility, transfers, gait training, and balance training to increase function with ADLs and independence. Patient's Am Pac score on this date was 9 which is a discharge recommendation for an extended care facility. I agree with this recommendation at this time due to patient still needing to follow surgical precautions while improving function.
--- NOTE | 2021-06-25 19:48 | NUR ---
PT RESTING IN BED, NO SIGNS OF DISTRESS NOTED, RESP EVEN AND UNLABORED. PT ALERT AND ORIENTED X4, DISCUSSED POC, PT VOICES NO NEEDS OR COMPLAINTS AT THIS TIME, VITALY APPLIED. SKIN INTACT. TRIPLE LUMEN CENTRAL LINE TO R SUBCLAVIAN LUMENS FLUSHED WELL GOOD BLOOD RETURN, TPN INFUSING PT TOLERATING WELL. SNACK PROVIDED. ASSESSMENT COMPLETED, CALL LIGHT IN REACH, CONTINUE TO MONITOR.
--- NOTE | 2021-06-26 | NUR ---
PT RESTING IN BED, NO SIGNS OF DISTRESS NOTED, RESP EVEN AND UNLABORED. VOICES NO NEEDS OR COMPLAINTS AT THIS TIME. CALL LIGHT IN REACH,CONTINUE TO MONITOR.
[2021-06-26 03:50] VITALS: BP 100/59
--- NOTE | 2021-06-26 04:00 | NUR ---
PT RESTING IN BED, NO SIGNS OF DISTRESS NOTED, RESP EVEN AND UNLABORED. PT VOICES NO NEEDS OR COMPLAINTS AT THIS TIME, CALL LIGHT IN REACH, CONTINUE TO MONITOR.
[2021-06-26 05:05] LABS: HEMATOCRIT 26.1 % (39.0-50.0); HEMOGLOBIN 8.8 g/dl (14.0-18.0); MEAN CELL VOLUME 94.6 fL CALC (80.0-100.0); MEAN CORPUSCULAR HGB 31.9 pG CALC (26.0-32.0); MEAN CORPUSCULAR HGB CONC 33.7 g/dL CAL (32.0-36.0); RED BLOOD COUNT 2.76 mill/uL (4.70-6.10); RED CELL DISTRI WIDTH 12.2 % (11.5-15.5)
[2021-06-26 05:36] LABS: ANION GAP 8 (6-22 (CALC)); BUN 21 mg/dL (8-23); BUN/CREATININE RATIO 34 (12-20 (CALC)); CARBON DIOXIDE 28 mmol/l (22-30); CHLORIDE 105 mmol/l (95-108); CREATININE 0.6 mg/dL (0.7-1.3); GFR > 60 ML/MIN (>=60 (CALC)); GFR FOR AFR.AMER. > 60 ML/MIN (>=60 (CALC)); MAGNESIUM 1.5 mg/dL (1.6-2.3); POTASSIUM 4.4 mmol/l (3.5-5.1); SODIUM 136 mmol/l (137-146)
[2021-06-26 08:06] VITALS: BP 110/67
--- NOTE | 2021-06-26 08:06 | NUR ---
ASSESSMENT DONE. PATIENT IS ALERT AND ORIENT X3. PATIENT DENIES PAIN AT THIS TIME. TELE IN PLACE. TPN INFUSING WELL PER ORDER. PATIENT STATED HE DID WELL WITH HIS CLEAR LIQUID DIET. ABD DRESSSING CDI. PATIENT DENIES ANY NEEDS AT THIS THIS TIME. SAFETY PRECAUTIONS REINFORCED AND CALL LIGHT IN REACH.
--- NOTE | 2021-06-26 09:45 | NUR ---
PATIENT IS SITTING IN THE RECLINER. DR. LIN AND REYMUNDO BACK IN ROOM.
[2021-06-26 10:37] VITALS: BP 110/53
--- NOTE | 2021-06-26 11:28 | NUR ---
PATIENT IS SITTING IN THE RECLINER. DR. NELSON IN ROOM TO ASSESS PATIENT. PATIENT DENIES NEEDS. CALL LIGHT IN REACH.
[2021-06-26 14:46] VITALS: BP 112/69
--- NOTE | 2021-06-26 15:18 | NUR ---
PATIENT IS RESTING IN BED WITH NO DISTRESS NOTED. PATIENT DENIES NEEDS AT THIS TIME. CALL LIGHT IN REACH.
[2021-06-26 19:00] VITALS: BP 112/64
--- NOTE | 2021-06-26 20:00 | NUR ---
PHYSICAL ASSESMENT COMPLETE. PT CURRENTLY DENIES PAIN OR DISCOMFORT. SCHEDULED MEDICATIONS AND PRN MEDICATION ADMINISTERED, SEE E-MAR. PT DENIES ANY NEEDS AT THIS TIME. PLAN OF CARE REVIEWED, PT DENIES QUESTIONS, VERBALIZES UNDERSTANDING. ITEMS WITHIN REACH, BED LOCKED IN LOW POSITION W/ BEDRAILS UP X2. CALL [facility]A WITHIN REACH, AGREES TO CALL PRN.
[2021-06-27] VITALS (8 sets, daily range): BP systolic 100–113; BP diastolic 57–68
--- NOTE | 2021-06-27 00:16 | NUR ---
PT LAYING IN BED WITH EYES CLOSED, APPEARS TO BE SLEEPING, APPEARS COMFORTABLE AND IN NO DISTRESS. RESPIRATIONS REGULAR AND UNLABORED. ITEMS REMAIN WITHIN REACH, CALL SOSA REMAINS WITHIN REACH. BED REMAINS LOCKED AND IN LOW POSITION WITH BEDRAILS UP X2. WILL CONTINUE TO MONITOR.
--- NOTE | 2021-06-27 03:10 | NUR ---
PT RECEIVED FROM ED TO ROOM 272. ARRIVES VIA W/C ACCOMPANIED BY [facility]. PT AMBULATORY TO BED. GAIT UNSTEADY. PT DENIES PAIN AT THIS TIME. ORIENTED TO UNIT, ROOM, CALL SOSA, LIGHTS, TV. ICE WATER PROVIDED. CALL SOSA WITHIN REACH. AGREES TO CALL PRN.
--- NOTE | 2021-06-27 04:39 | NUR ---
PT RESTING IN BED, NO SIGNS OF DISTRESS NOTED, RESP EVEN AND UNLABORED. PT VOICES NO NEEDS OR COMPLAINTS AT THIS TIME. CALL LIGHT IN REACH, CONTINUE TO MONITOR.
[2021-06-27 04:46] LABS: HEMATOCRIT 26.8 % (39.0-50.0); HEMOGLOBIN 8.9 g/dl (14.0-18.0); MEAN CELL VOLUME 96.4 fL CALC (80.0-100.0); MEAN CORPUSCULAR HGB CONC 33.2 g/dL CAL (32.0-36.0); RED BLOOD COUNT 2.78 mill/uL (4.70-6.10); RED CELL DISTRI WIDTH 12.4 % (11.5-15.5)
[2021-06-27 05:09] LABS: ANION GAP 8 (6-22 (CALC)); BUN 20 mg/dL (8-23); BUN/CREATININE RATIO 30 (12-20 (CALC)); CARBON DIOXIDE 29 mmol/l (22-30); CHLORIDE 104 mmol/l (95-108); CREATININE 0.7 mg/dL (0.7-1.3); GFR > 60 ML/MIN (>=60 (CALC)); GFR FOR AFR.AMER. > 60 ML/MIN (>=60 (CALC)); MAGNESIUM 1.6 mg/dL (1.6-2.3); POTASSIUM 4.4 mmol/l (3.5-5.1); SODIUM 136 mmol/l (137-146)
--- NOTE | 2021-06-27 07:14 | NUR ---
0713 ANDREW NURSE FROM ER CALLED THAT READING OF TELE SHOWS [facility]. 0714 WENT TO ASSESS PATIENT MATERIALS TECH IN ROOM. STATED SHE HELPED PATIENT TO THE RECLINER. ASSESSMENT DONE. NO DISTRESS NOTED ON PATIENT. PATIENT IS ALERT AND ORIENT X3. PATIENT DENIES PAIN. RESPS EVEN AND UNLABORED. TELE IN PLACE. ABD DRESSING CDI. PATIENT DENIES NEEDS. CALL LIGHT IN REACH.
--- NOTE | 2021-06-27 07:19 | NUR ---
NOTIFIED DR. LIN ABOUT PATIENT TELE READING PER ER OF [facility]. NO NEW ORDERS AT THIS TIME.
--- NOTE | 2021-06-27 08:42 | NUR ---
NOTIFIED REYMUNDO BACK ABOUT [facility] PER ER AND PROVIDED THE ER STRIP. NO NEW ORDERS AT THIS TIME.
--- NOTE | 2021-06-27 11:45 | NUR ---
PATIENT IS SITTING IN THE RECLINER EATING HIS LUNCH. PATIENT STATED THE FOOD IS GOOD. PATIENT DENIES PAIN OR NEEDS. CALL LIGHT IN REACH.
--- NOTE | 2021-06-27 15:37 | NUR ---
PATIENT IS IN BED WITH NO DISTRESS NOTED AND TALKING IN HIS CELL PHONE. PATIENT DENIES NEEDS AT THIS TIME. CALL LIGHT IN REACH.
--- NOTE | 2021-06-27 17:00 | NUR ---
PATIENT STATED HAS PAIN IN UPPER CHEST AND A HEADACHE. ALSO, FEELS LIKE SOB. VS OBTAIN. P-67, BP 109/64 AND O2 97% RA. CALL LIGHT IN REACH.
--- NOTE | 2021-06-27 17:10 | NUR ---
MEDICATED PATIENT WITH OXYCODONE FOR HIS PAIN. PATIENT STATED WHAT TIME IS DINNER COMING TOLD HIM SOON. PATIENT VERBAILZED UNDERSTANDING. PATIENT DENIES ANY OTHER NEEDS AT THIS TIME. CALL LIGHT IN REACH.
--- NOTE | 2021-06-27 17:35 | NUR ---
PATIENT WAS ABLE TO EAT ALL HIS DINNER. PATIENT STATED THE PAIN IS LESS AND FEELS BETTER. PATIENT DENIES ANY OTHER NEEDS AT THIS TIME. PATIENT CELL PHONE RING AND PATIENT ANSWER. CALL LIGHT IN REACH.
--- NOTE | 2021-06-27 20:00 | NUR ---
ASSEMENT COMPLETED AT THIS TIME, PATIENT ALERT AND ORIENTED X3, A BIT FORGETFULL AT TIMES. NO CURRENT COMPLAINTS A THIS TIME. 3X LUMEN LINE FLUSHED AND PATENT. PLAN OF CARE DICUSSED WIHT PATIENT, CALL LIGHT AND BEDSIDE TABLE WITHIN REACH.
--- NOTE | 2021-06-28 01:51 | NUR ---
CALL RECEIVED FROM ED REGARDING [facility], STAT EKG OBTAINED, DR LIN NOTIFIED. NO NEW ORDERS RECEIVED.
--- NOTE | 2021-06-28 01:58 | NUR ---
CONSULTED WITH DR HERNANDEZ IN ED. NO ST CHANGES OBSERVED. PATIENT VOICES NO COMPLAINTS, NEGATIVE ASSMENT.
[2021-06-28 04:04] VITALS: BP 109/60
--- NOTE | 2021-06-28 04:08 | NUR ---
IN TO DRAW MORNING LABS. PT TOLERATED WELL.
[2021-06-28 05:10] LABS: HEMATOCRIT 25.2 % (39.0-50.0); HEMOGLOBIN 8.4 g/dl (14.0-18.0); MEAN CELL VOLUME 96.2 fL CALC (80.0-100.0); MEAN CORPUSCULAR HGB 32.1 pG CALC (26.0-32.0); MEAN CORPUSCULAR HGB CONC 33.3 g/dL CAL (32.0-36.0); RED BLOOD COUNT 2.62 mill/uL (4.70-6.10); RED CELL DISTRI WIDTH 12.6 % (11.5-15.5)
[2021-06-28 05:43] LABS: ANION GAP 7 (6-22 (CALC)); BUN 25 mg/dL (8-23); BUN/CREATININE RATIO 35 (12-20 (CALC)); CARBON DIOXIDE 28 mmol/l (22-30); CHLORIDE 104 mmol/l (95-108); CREATININE 0.7 mg/dL (0.7-1.3); GFR > 60 ML/MIN (>=60 (CALC)); GFR FOR AFR.AMER. > 60 ML/MIN (>=60 (CALC)); MAGNESIUM 1.7 mg/dL (1.6-2.3); POTASSIUM 4.2 mmol/l (3.5-5.1); SODIUM 135 mmol/l (137-146)
--- NOTE | 2021-06-28 08:00 | NUR ---
PT AWAKE UPON ENTERING ROOM DENIES ANY PAIN AT THIS TIME. PT IS POST OP DAY 8. ABD PAD IN IS PLACE, DRESSING CDI. ASSESSMENT PERFORMED AT THIS TIME: PT A&O X3, HEART SOUNDS S1 AND S2 HEARD. TELE MONITOR IS IN PLACE SHOWING ST WITH A RATE 103 PER ER MONITORING. LUNG SOUNDS ARE CLEAR UPPER/ LOWER LOBES EQUALLY BILATERALLY. BOWEL SOUNDS ARE ACTIVE X4. RADIAL PULSE IS STRONG EQUALLY BILATERALLY. PEDAL PULSES ARE WEAK EQUALLY BILATERALLY. EDEMA ON LOWER LEGS/ TRACE. VITALY HOSES ON PT. PT HAS A TRIPLE LUMEN ON RIGHT UPPER CHEST. FLUSHED WITH NO RESISTANCE NOTED. CALL LIGHT MONITOR AND PERSONAL ITEMS ARE WITHIN REACH.
[2021-06-28 08:27] VITALS: BP 124/58
--- NOTE | 2021-06-28 08:38 | NUR ---
COVID TEST SAMPLE TAKEN DOWN TO THE LAB BY THIS [facility] ATTENDANT
[2021-06-28 10:35] VITALS: BP 123/63
[2021-06-28] MEDS ORDERED: PERCOCET 5/321 COMBO PO (11:04)
--- NOTE | 2021-06-28 11:37 | NUR ---
S: Patient reported feeling better on this date and was told by case management that he will be discharged to rehab facility today. O: Patient performed: 1 x 15 each seated hip flexion 1 x 15 each seated knee extension Bed Mobility SBA x 1 Supine to sit CGA x 1 Sit to stand CGA x 1 Toilet transfer CGA x 1 Patient was able to perform toilet transfers and self care by utilizing grab bars in the bathroom. Ambulation x 50 feet CGA x 1 with FWW on smooth level surface. Patient was able to ambulate approximately 40 feet before requiring a seated rest break. Patient required verbal cues to keep FWW closer to body during ambulation. A: Patient was able to perform ADLs with CGA x 1 with minimal discomfort from surgical area. Patient is progressing immensely but still requires PT to increase endurance and safety with ADLs while maintaining surgical precautions. P: Patient will need to continue with interventions focused on strengthening, endurance, transfers, and ambulation to improve function and safety with ADLs. Patient's Am Pac score on this date was 13 which would be a discharge recommendation for home with home health care. I disagree with this recommendation as the patient will need to follow surgical precautions with surgical site and to improve function/safety with ADLs.
--- NOTE | 2021-06-28 13:48 | NUR ---
Discharge instructions given. Patient verbalizes understanding of same. Discharged in stable condition via Wheelchair to [facility] with [facility] staff. All belongings sent with pt. DRESSING WAS CDI. PT UNDERSTANDS TO COME BACK IF SYMPTOMS WORSEN. TRIPLE LUMEN WAS REMOVED. CATHETER INTACT.
--- NOTE | 2021-07-01 13:21 | NUR ---
PATIENT WAS DISCHARGED FROM THE HOSPITAL AND SENT TO A REHAB IN [place]. I SPOKE WITH HIS CAREGIVER KAMRON. I ADVISED HER TO MAKE SURE THE ORDERS WRITTEN BY DR NELSON WERE CARRIED OUT. PATIENT WAS TO SEE DR NELSON IN ONE WEEK FOR STAPLE REMOVAL. KAMRON STATED SHE UNDERSTOOD AND WOULD MAKE SURE THE ORDERS WERE CARRIED OUT.
== END 2021-06-28 13:48 | DRG 329 ==
LOC: ED 14:56 → ED-I 17:55 → ED 18:28 → MS2 18:29 → ICU 06-20 17:00 → MS2 06-20 17:00 → ICU 06-20 17:08 → MS2 06-24 18:35
PROVIDERS: Family Medicine; Hospitalist; Surgery; ADMIT Internal Medicine; ATTEND Internal Medicine
PROC: 0DB80ZZ Excision of Small Intestine, Open Approach (ICD-10-PCS; principal; 2021-06-20)
PROC: 0DJD4ZZ Inspection of Lower Intestinal Tract, Percutaneous Endoscopic Approach (ICD-10-PCS; 2021-06-20)
PROC: 02HV33Z Insertion of Infusion Device into Superior Vena Cava, Percutaneous Approach (ICD-10-PCS; 2021-06-20)
DX: K56.50 Intestinal adhesions [bands], unspecified as to partial versus complete obstruction (principal); K55.021 Focal (segmental) acute infarction of small intestine; I10 Essential (primary) hypertension; E11.9 Type 2 diabetes mellitus without complications; I48.91 Unspecified atrial fibrillation; D64.9 Anemia, unspecified; E78.5 Hyperlipidemia, unspecified; N40.0 Benign prostatic hyperplasia without lower urinary tract symptoms; Z86.73 Personal history of transient ischemic attack (TIA), and cerebral infarction without residual deficits; Z79.01 Long term (current) use of anticoagulants; Z20.822 Contact with and (suspected) exposure to COVID-19
CPT/HCPCS: G0378; J0131; J1650; J3475; Q9967; S0164